=== PATIENT | male | born 1995 | race Hispanic/Latino ===

== ENCOUNTER 2017-02-27 10:22 | Emergency (ER) | payer SELFPAY ==
[2017-02-27 11:03] LABS: Bilirubin Small (Negative); Blood, Urine Trace (Negative); Glucose, Urine (Dipstick) Negative (Negative); Ketone, Urine Trace mg/dL (Negative); Nitrite Negative (Negative); Protein, Urine (Dipstick) Negative (Neg-Trace); Urobilinogen 0.2 mg/dL (0.2-1.0)
[2017-02-27 11:14] LABS: Bacteria/HPF 1+ HPF (None Seen); Hyaline Casts/LPF NONE SEEN LPF (0-3 Hyaline); RBC/HPF 0-3 HPF (0-3); WBC/HPF 0-3 HPF (0-3)
[2017-02-27 11:24] LABS: #Basophils 0.1 thou/uL (0.0-0.2); #Eosinphils 0.6 thou/uL (0.0-0.7); #Lymphocytes 2.4 thou/uL (1.20-3.40); #Monocytes 0.6 thou/uL (0.11-0.59); #Neutrophils 3.7 thou/uL (1.40-6.50); %Basophils 1.6 % (0.0-1.0); %Eosinophils 7.9 % (0.0-10.0); %Lymphocytes 32.3 % (21.0-51.0); %Monocytes 7.9 % (0.0-10.0); Hematocrit 48.9 % (42.0-52.0); Mean Platelet Volume 8.4 fL (7.4-10.4); Red Blood Cell (RBC) Count 4.85 mill/uL (4.70-6.10); White Blood Cell (WBC) Count 7.4 thou/uL (4.8-10.8)
[2017-02-27 11:45] LABS: ALT (SGPT) 41 U/L (8-55); AST (SGOT) 127 U/L (5-34); Alkaline Phosphatase 111 U/L (40-150); Anion Gap 13 mmol/L (10-20); BUN (Urea Nitrogen) 15 mg/dL (8.9-20.6); Bilirubin, Total 0.9 mg/dL (0.2-1.2); Calc. Creatinine Clearance 0 mL/min (70-130); Calcium 9.7 mg/dL (7.8-10.44); Carbon Dioxide 23 mmol/L (22-29); Chloride 106 mmol/L (98-107); Estimated GFR-MDRD Greater than 90; Globulin 3.2 g/dL (2.4-3.5); Lipase 35 U/L (8-78); Protein, Total 7.7 g/dL (6.0-8.3)
[2017-02-27] MEDS ORDERED: Mag-Al 1200 mg/1200 mg/30 ML UDCUP ONE (11:52)
[2017-02-27] MEDS ORDERED: Lidocaine Viscous Sol 2% 15 ml UD Cup ONE (11:52)
[2017-02-27] MEDS ORDERED: Ketorolac Tromethamine 30 MG/ML VIAL ONE (12:28)
[2017-02-27] MEDS ORDERED: Morphine 4 MG/ML VIAL ONE (14:23)
--- NOTE | 2017-02-27 15:43 | CT ---
CT ABDOMEN AND PELVIS WITHOUT IV CONTRAST: Date: 02/27/17 HISTORY: Diffuse upper abdominal pain with nausea and diarrhea. COMPARISON: 10/11/15. FINDINGS: Lack of intravenous contrast limits sensitivity for evaluation of the parenchymal organs. However, th e lung bases, liver, spleen, pancreas, bilateral adrenal glands, kidneys, and urinary bladder demonst rate a grossly normal nonenhanced CT appearance. No renal or ureteral calculi are seen bilaterally. There has been no interval change compared to the prior exam in 2016. There is increased density in the region of the medullary pyramids which may be r elated to concentrated urine. IMPRESSION: No renal or ureteral calculi are seen bilaterally, and there is no evidence of hydronephrosis. POS: [facility]
== END 2017-02-27 16:45 | disposition home or self-care (01) ==
LOC: ERS 10:22
DX: K52.9 Noninfective gastroenteritis and colitis, unspecified (principal); J45.909 Unspecified asthma, uncomplicated; Z87.891 Personal history of nicotine dependence
CPT/HCPCS: 74176; 80053; 81003; 81015; 83690; 85025; 96361; 96372; 96374; J1885; J2270

== ENCOUNTER 2019-01-20 23:50 | Emergency (ER) | payer SELFPAY ==
[2019-01-21] MEDS ORDERED: Bupivacaine 0.5% 10 ML VIAL ONE (00:19)
== END 2019-01-21 00:57 | disposition home or self-care (01) ==
LOC: ERS 23:50
DX: K02.9 Dental caries, unspecified (principal); J45.909 Unspecified asthma, uncomplicated; Z87.891 Personal history of nicotine dependence
CPT/HCPCS: 64400; J3490

== ENCOUNTER 2021-09-05 16:59 | Emergency (ER) | payer SELFPAY ==
[2021-09-05] MEDS ORDERED: Albuterol 200 PUFF (6.7GM INHALER) ONE (17:26)
== END 2021-09-05 18:31 | disposition home or self-care (01) ==
LOC: ERS 16:59
DX: J45.909 Unspecified asthma, uncomplicated (principal); F17.210 Nicotine dependence, cigarettes, uncomplicated
CPT/HCPCS: 71045

== ENCOUNTER 2021-10-05 14:52 | Outpatient (CLI) | payer SELFPAY | END 2021-10-05 14:53 | disposition home or self-care (01) | LOC: LABBT 14:52 | PROVIDERS: ATTEND Orthopaedic Surgery Hand Surgery | DX: T85.848A Pain due to other internal prosthetic devices, implants and grafts, initial encounter (principal); Z20.822 Contact with and (suspected) exposure to COVID-19 | CPT/HCPCS: 87811 ==

== ENCOUNTER → 2021-10-07 | Day surgery (SDC) | payer OTHER ==
[2021-10-06 09:08] VITALS: BMI 21.1
== END | disposition home or self-care (01) ==
LOC: SDC 09:38
PROVIDERS: ATTEND Orthopaedic Surgery Hand Surgery
DX: T84.84XA Pain due to internal orthopedic prosthetic devices, implants and grafts, initial encounter (principal); Z53.9 Procedure and treatment not carried out, unspecified reason

== ENCOUNTER 2021-10-10 12:33 | Day surgery (SDC) | payer OTHER ==
[2021-10-10] MEDS ORDERED: Midazolam HCl 2 mg/2 ml Vial ONE (14:11)
[2021-10-10] MEDS ORDERED: Dexmedetomidine 200 MCG/2 ML VIAL ONE (14:12)
[2021-10-10] MEDS ORDERED: fentaNYL Citrate/PF 100 MCG/2 ML SYRINGE ONE (14:12)
[2021-10-10] MEDS ORDERED: Thrombin 5000 UNITS/5 ML VIAL ONE (14:14)
[2021-10-10] MEDS ORDERED: Bupivacaine PF 0.5% 30 ML VIAL ONE (14:14)
[2021-10-10] MEDS ORDERED: Bacitracin Zinc Ointment 30 gm TUBE ONE (14:14)
[2021-10-10] MEDS ORDERED: Sodium Chloride 0.9% 100 ML ONE (14:19)
[2021-10-10] MEDS ORDERED: CEFAZOLIN 2 GM VIAL ONE (14:19)
[2021-10-10] MEDS ORDERED: Ketorolac Tromethamine 30 MG/ML VIAL ONE (14:27)
[2021-10-10] MEDS ORDERED: ePHEDrine 50 MG/ML VIAL ONE (14:27)
[2021-10-10] MEDS ORDERED: Dexamethasone 20 MG/5 ML VIAL ONE (14:27)
[2021-10-10] MEDS ORDERED: Lidocaine 1% PF 5 ML VIAL ONE (14:27)
[2021-10-10] MEDS ORDERED: PROPOFOL 200 MG/20 ML VIAL ONE (14:27)
[2021-10-10] MEDS ORDERED: Ondansetron PF 4 MG/2 ML Vial ONE (14:27)
[2021-10-10] MEDS ORDERED: HYDROmorphone 2 MG/ML VIAL ONE (14:40)
== END 2021-10-10 16:54 | disposition home or self-care (01) ==
LOC: SDC 12:33
PROVIDERS: ATTEND Orthopaedic Surgery Hand Surgery
PROC: 0RPW0JZ Removal of Synthetic Substitute from Right Finger Phalangeal Joint, Open Approach (ICD-10-PCS; principal; 2021-10-10)
DX: T84.84XA Pain due to internal orthopedic prosthetic devices, implants and grafts, initial encounter (principal); J45.909 Unspecified asthma, uncomplicated
CPT/HCPCS: 76000; J0690; J1100; J1170; J1885; J2250; J2405; J2704; J3490; S0020